=== PATIENT | male | born 1995 | race African-American/Black ===

== ENCOUNTER 2019-01-23 15:57 | Emergency (ER) | payer BC ==
[~2019-01-23] VITALS: Ht 177.8 cm; Wt 88.5 kg
[2019-01-23 16:05] VITALS: BP 124/79
[2019-01-23] MEDS ORDERED: HYDROcodone/Acetamin 5/325 tab PO ONE (16:15)
[2019-01-23] MEDS ORDERED: Lidocaine 1% Plain 30 ml INJ ONE (17:15)
--- NOTE | 2019-01-23 17:36 | Diagnostic Imaging Report ---
Clinical Indication:Pain, trauma Technique: 3 views of the left wrist Comparison: None Findings: There is a transverse fracture of the distal radius, posteriorly angulated posteriorly displaced and likely involving the articular surface. There is an associated fracture of the ulnar styloid. No carpal fracture demonstrated. Impression: Positive for distal radial and ulnar styloid fractures Findings discussed by phone with Dr. Bingham at the time of interpretation
--- NOTE | 2019-01-23 17:37 | Diagnostic Imaging Report ---
Indication: Left hand pain Technique: 3 views left hand Comparison: none Findings: There are fractures of the distal radius and ulna, described on separate wrist radiograph report. No carpal or digital fractures demonstrated. The joint spaces are preserved. Impression: Positive for distal radial and ulnar fractures Dr. Bingham where
[2019-01-23 17:43] VITALS: BP 121/75
[2019-01-23] MEDS ORDERED: Bacitracin Oint UD TOPIC ONE ×2 (17:45)
[2019-01-23 18:01] VITALS: BP 121/75
[2019-01-23] MEDS ORDERED: NORCO 5-325 TA1 EACH ORAL (18:10)
[2019-01-23] MEDS ORDERED: IBUPROFEN600 MG ORAL (18:10)
--- NOTE | 2019-01-23 21:16 | Emergency Room Report ---
History of Present Illness General Chief Complaint: Upper Extremity Injury Source: Patient Present Illness HPI 23-year-old male presents ED for evaluation. Complaining of left wrist pain and swelling. States he fell off a scooter today. Fell on outstretched left wrist. Denies any head injury. Pain is 10 out of 10, sharp, nonradiating. Denies any other injuries. No other aggravating relieving factors. Denies any other associated symptoms Allergies: Coded Allergies: AZITHROMYCIN (Verified Allergy, Unknown, 01/23/19) Patient History Past Medical History: none Past Surgical History: none Pertinent Family History: none Social History: Denies: smoking, alcohol use, drug use Immunizations: UTD Reviewed Nursing Documentation: PMH: Agreed; PSxH: Agreed Nursing Documentation-PMH Past Medical History: No Stated History Review of Systems All Other Systems: negative except mentioned in HPI Physical Exam Vital Signs Date Time Temp Pulse Resp B/P (MAP) Pulse Ox O2 Delivery O2 Flow Rate FiO2 01/23/19 16:00 98.1 67 19 132/71 99 Room Air Sp02 EP Interpretation: reviewed, normal General Appearance: no apparent distress, alert, GCS 15, non-toxic Head: normocephalic, atraumatic Eyes: bilateral eye normal inspection, bilateral eye PERRL ENT: hearing grossly normal, normal pharynx, no angioedema, normal voice Neck: full range of motion, supple/symm/no masses Respiratory: chest non-tender, lungs clear, normal breath sounds, speaking full sentences Cardiovascular #1: regular rate, rhythm, no edema Cardiovascular #2: 2+ carotid (R), 2+ carotid (L), 2+ radial (R), 2+ radial (L) , 2+ dorsalis pedis (R), 2+ dorsalis pedis (L) Gastrointestinal: normal bowel sounds, non tender, soft, non-distended, no guarding, no rebound Rectal: deferred Genitourinary: normal inspection, no CVA tenderness Musculoskeletal: back normal, gait/station normal, normal range of motion, tender - L wrist swelling/deformity Neurologic: alert, oriented x3, responsive, motor strength/tone normal, sensory intact, speech normal Psychiatric: judgement/insight normal, memory normal, mood/affect normal, no suicidal/homicidal ideation Reflexes: 3+ bicep (R), 3+ bicep (L), 3+ tricep (R), 3+ tricep (L), 3+ knee (R) , 3+ knee (L) Skin: normal color, no rash, warm/dry, well hydrated Lymphatic: no adenopathy Procedures Splinting Splinting : Consent: Verbal Hand-Made Type: plaster Pre-Proc Neuro Vasc Exam: normal Post-Proc Neuro Vasc Exam: normal Patient Tolerated: Well Complications: None Joint Reduction Joint Reduction : Consent: Verbal Joint Reduction Site: wrist (L) Procedural Sedation: No Reduction Attempts: One Pre-Procedure NV Exam: Yes Post-Procedure NV Exam: Yes Post Joint Reduction Film: joint reduced Patient Tolerated: Well Complications: None Medical Decision Making Diagnostic Impression: Primary Impression: Wrist fracture Qualified Codes: S62.102A - Fracture of unspecified carpal bone, left wrist, initial encounter for closed fracture ER Course Hospital Course 23-year-old M presents to ED complaining of LUE pain s/p fall Differential diagnoses include: Fracture, dislocation, sprain, contusion Clinical course Patient placed on stretcher. After initial history and physical, I ordered pain medications and Xrays of L hand, wrist Xrays read shows distal radius/ulna fx. with some angulation. Neurovascularly intact Hematoma block applied. Placed in finger traps for passive vertical traction. On reassessment wrist appears well aligned Splint applied. Discussed findings with patient. We'll discharged to home with pain medications. We'll also provide orthopedic referral. Safe for discharge or close outpatient follow-up Diagnosis - wrist fracture Stable and discharged to home with prescription for Motrin, [place]. apply ice, keep elevated. Followup with PMD/ortho. Return to ED if symptoms recur or worsen Other X-Ray Diagnostic Results Other X-Ray Diagnostic Results #1: X-Ray ordered: L wrist # of Views/Limited Vs Complete: 3 View Indication: Pain EP Interpretation: Yes Interpretation: no dislocation, other - distal radius and ulna fx Impression: Other - fx Electronically Signed by: Electronically signed by Nadeem Bingham MD Other X-Ray Diagnostic Results #2: X-Ray ordered: Left hand # of Views/Limited Vs Complete: 3 View Indication: Pain EP Interpretation: Yes Interpretation: no dislocation, no soft tissue swelling, no fractures Impression: No acute disease Electronically Signed by: Electronically signed by Nadeem Bingham MD Last Vital Signs Date Time Temp Pulse Resp B/P (MAP) Pulse Ox O2 Delivery O2 Flow Rate FiO2 01/23/19 18:01 98.1 92 20 121/75 100 Room Air Status: improved Disposition: HOME, SELF-CARE Condition: Stable Scripts Hydrocodone Bit/Acetaminophen 5-325* (NORCO 5-325*) 1 Each Tablet 1 TAB ORAL Q6H PRN for For Pain, #10 TAB 0 Refills Prov: Nadeem Bingham MD 01/23/19 Ibuprofen* (MOTRIN*) 600 Mg Tablet 600 MG ORAL Q8H PRN for For Pain, #30 TAB 0 Refills Prov: Nadeem Bingham MD 01/23/19 Referrals: NOT CHOSEN IPA/,REFERRING (PCP) [facility] Open 24 hour /7 days a week by Appointment Only [id number] [facility] [id number] Patient Instructions: Wrist Fracture With [facility] Nadeem Bingham MD Jan 23, 2019 21:15
== END 2019-01-23 18:01 | disposition home or self-care (01) ==
LOC: EMR 16:27
DX: S52.502A Unspecified fracture of the lower end of left radius, initial encounter for closed fracture (principal); S52.612A Displaced fracture of left ulna styloid process, initial encounter for closed fracture; W19.XXXA Unspecified fall, initial encounter; Y93.66 Activity, soccer; Y92.9 Unspecified place or not applicable; Z88.1 Allergy status to other antibiotic agents
CPT/HCPCS: 25605; 73110; 73130; 99284; J2001